=== PATIENT | male | born 1980 | race Two or more races ===

== ENCOUNTER 2022-03-14 19:38 | Emergency (ER) | payer SELFPAY ==
[~2022-03-14] VITALS: Ht 182.9 cm; Wt 108.5 kg
[2022-03-14] MEDS ORDERED: OXYCODONE W/ ACETAMINOPHEN 5/325MG TABLET PO ONE (21:30)
[2022-03-15] MEDS ORDERED: PERCOT PO (02:36)
[2022-03-15 03:35] VITALS: BP 152/102
== END 2022-03-15 03:35 | disposition home or self-care (01) ==
LOC: ER 19:38
DX: S16.1XXA Strain of muscle, fascia and tendon at neck level, initial encounter (principal); V43.52XA Car driver injured in collision with other type car in traffic accident, initial encounter; Y93.89 Activity, other specified; Y92.410 Unspecified street and highway as the place of occurrence of the external cause; Y99.8 Other external cause status
CPT/HCPCS: 70450; 71045; 72125; 72128; 72131